=== PATIENT | male | born 1960 | race Caucasian/White ===

== ENCOUNTER 2021-02-07 03:48 | Emergency (ER) | payer BC, OTHER ==
[~2021-02-07] VITALS: Ht 172.7 cm; Wt 77.1 kg
[2021-02-07 03:48] VITALS: BP_SYST 153
--- NOTE | 2021-02-07 03:48 | NUR ---
Patient to ER bed 3 to gown for evaluation. Side rails up.
--- NOTE | 2021-02-07 04:00 | NUR ---
PATIENT AAOX4 BIB BLS C/O DIZZINESS. PER PATIENT HE WAS AT HOME AND HE FELT DIZZY AND DOESN'T REMEMBER WHAT HAPPENED. HE SAID HE FELT FUZZY SEEMED TO HAVE FALLEN ON THE FLOOR. PATIENT DOESNT REMEMBER IF HE HIT HIS HEAD. VSS. PATIENT ABLE TO ANSWER IN FULL SENTENCES. DENIES SOB OR CHEST PAIN AT THIS TIME.
--- NOTE | 2021-02-07 04:45 | NUR ---
DR. KILGORE AT BEDSIDE FOR EVALUATION.
[2021-02-07] MEDS ORDERED: NACL 0.9% 1,000 ML IV ONE (05:00)
--- NOTE | 2021-02-07 05:15 | NUR ---
PORTABLE XRAY DONE AT BEDSIDE.
--- NOTE | 2021-02-07 05:38 | NUR ---
PATIENT TAKEN TO CT SCAN VIA WHEELCHAIR BY RADIOLOGY STAFF. VSS.
[2021-02-07 06:32] LABS: ANION GAP 8 (5-15); CALCIUM 8.8 mg/dL (8.4-11.0); CHLORIDE 108 mmol/L (98-107); CREATININE 1.19 mg/dL (0.55-1.30); GLUCOSE 114 mg/dL (70-99); POTASSIUM 3.6 mmol/L (3.5-5.1); SODIUM SERUM 143 mmol/L (136-145); UREA NITROGEN, BLOOD 25 mg/dL (8-21)
[2021-02-07 06:36] LABS: GFR AFRICAN AMERICAN 80 mL/min (>90)
[2021-02-07 06:37] LABS: INR 0.9 (0.80-1.20)
[2021-02-07 06:43] LABS: BASOPHILS % (AUTO) 0.4 % (0.0-2.0); EOSINOPHILS # (AUTO) 0.1 K/uL (0.0-0.4); EOSINOPHILS % (AUTO) 1.4 % (0.0-4.0); HEMATOCRIT 41.2 % (36-54); HEMOGLOBIN 14.5 g/dL (14.0-18.0); LYMPHOCYTES # (AUTO) 1.3 K/uL (1.0-5.5); LYMPHOCYTES % (AUTO) 16.4 % (20.5-51.5); MEAN CORPUSCULAR HEMOGLOBIN 33 pg (27-31); MEAN CORPUSCULAR HGB CONC 35 % (32-36); MEAN CORPUSCULAR VOLUME 92 fL (79.0-98.0); MONOCYTES # (AUTO) 0.6 K/uL (0.0-1.0); MONOCYTES % (AUTO) 6.9 % (1.7-9.3); NEUTROPHILS # (AUTO) 6.1 K/uL (1.8-7.7); NEUTROPHILS % (AUTO) 74.9 % (40.0-70.0); PLATELET COUNT (AUTO) 218 K/uL (130-430); RED BLOOD CELL COUNT(AUTO) 4.47 MIL/uL (4.2-6.2); RED CELL DISTRIBUTION WIDTH 12.8 % (9.0-15.0); WHITE BLOOD COUNT (AUTO) 8.1 K/uL (4.8-10.8)
[2021-02-07 06:49] LABS: ALANINE AMINOTRANSFERASE 23 U/L (12-78); ALBUMIN 3.6 g/dL (3.4-4.8); ASPARTATE AMINOTRANSFERASE 24 U/L (10-37); TOTAL BILIRUBIN 0.5 mg/dL (0.0-1.0)
[2021-02-07 06:50] LABS: ALCOHOL, BLOOD < 3 mg/dL (<10)
[2021-02-07] MEDS ORDERED: IOHEXOL 350 mgI/mL, 150 ML INFUS..BTL IV ONE (07:20)
--- NOTE | 2021-02-07 07:30 | NUR ---
PATIENT TAKEN TO CTA SCAN VIA WHEELCHAIR BY RADIOLOGY STAFF. VSS.
[2021-02-07 07:54] LABS: BILIRUBIN,URINE NEGATIVE (NEGATIVE); BLOOD, URINE NEGATIVE (NEGATIVE); CLARITY/URINE CLEAR (CLEAR); COLOR,URINE YELLOW (YELLOW); GLUCOSE,URINE NEGATIVE (NEGATIVE); KETONES,URINE NEGATIVE (NEGATIVE); LEUKOCYTE ESTERASE ,URINE NEGATIVE (NEGATIVE); NITRITE, URINE NEGATIVE (NEGATIVE); PROTEIN URINE NEGATIVE (NEGATIVE); UROBILINOGEN,URINE 0.2 (0.2-1.0)
[2021-02-07 08:11] LABS: BARBITURATE, URINE NEGATIVE (NEG <=200); METHAMPHETAMINES SCREEN,URINE NEGATIVE (NEG <=500); URINE AMPHETAMINE NEGATIVE (NEG <=500)
[2021-02-07 08:12] LABS: BENZODIAZEPINE, URINE NEGATIVE (NEG <=150); CANNABINOID, URINE POSITIVE (NEG <=50); COCAINE, URINE NEGATIVE (NEG <=150); OPIATE, URINE NEGATIVE (NEG <=100); PHENCYCLIDINE SCREEN,URINE NEGATIVE (NEG <=25); UR TRICYCLIC ANTIDEPRESSANTS NEGATIVE (NEG <=300); URINE METHADONE NEGATIVE (NEG <=200); URINE OXYCODONE SCREEN NEGATIVE (NEG <=100); URINE PROPOXYPHENE SCREEN NEGATIVE (NEG <=300)
[2021-02-07 09:01] VITALS: BP_SYST 107
--- NOTE | 2021-02-07 09:02 | NUR ---
Patient given written and verbal discharge instructions and verbalizes understanding. DR.LEE NIDIA KWAN discussed with patient the results and treatment provided. Patient in stable condition. ID arm band removed. IV catheter removed intact and dressing applied, no active bleeding. Patient educated on pain management and to follow up with PMD. Pain Scale 0/10. Opportunity for questions provided and answered. Medication side effect fact sheet provided.
== END 2021-02-07 09:02 | disposition home or self-care (01) ==
LOC: SED 03:48
DX: G45.9 Transient cerebral ischemic attack, unspecified (principal); R42 Dizziness and giddiness; Z79.899 Other long term (current) drug therapy
CPT/HCPCS: 36415; 70450; 70496; 70498; 71045; 76376; 80053; 80307; 81003; 84484; 85025; 85610; 85730; 93005; 96360; 96361; 99285; G0482; J7030; Q9967